=== PATIENT | male | born 1985 | race Caucasian/White ===

== ENCOUNTER 2021-12-14 15:45 | Emergency (ER) | payer BC, SELFPAY ==
[2021-12-14 15:56] VITALS: BP 141/90; PULSE 84; RESP 17; O2SAT 100
[2021-12-14 15:58] VITALS: BP 141/90; PULSE 96; RESP 18; TEMP 36.8; O2SAT 100; BMI 29.1
[2021-12-14 16:00] VITALS: BP 140/93; PULSE 96; O2SAT 100
[2021-12-14 16:30] VITALS: BP 132/83; PULSE 89; RESP 18; O2SAT 98
--- NOTE | 2021-12-14 16:38 | XR_ITS ---
PROCEDURE INFORMATION: Exam: XR Chest Exam date and time: 12/14/2021 4:45 PM Age: 36 years old Clinical indication: Other: Got delta 8 liquid from electronic cigarette in his mouth; Additional info: Got delta 8 liquid in mouth TECHNIQUE: Imaging protocol: Radiologic exam of the chest. Views: 2 views. COMPARISON: No relevant prior studies available. FINDINGS: Lungs: Upper normal lung volumes. No focal consolidation. Pulmonary vessels do not appear congested. Pleural spaces: Unremarkable. No significant pleural effusion. No pneumothorax. Heart/Mediastinum: The cardiac silhouette is normal. Bones/joints: Minimal thoracic scoliosis. Soft tissues: Small rectangular metallic foreign bodies of approximately 6 mm projected over the anterior left chest wall, likely external to the patient, correlate clinically. IMPRESSION: 1. No acute cardiopulmonary findings. No consolidation. 2. Metallic foreign bodies projected over the anterior left chest wall appear likely external to the patient, correlate clinically.
--- NOTE | 2021-12-14 16:40 | PC.NURSE ---
Attempted to call Rad to notify of CXR, but no answer.
[2021-12-14 17:00] VITALS: BP 127/87; PULSE 95; RESP 17; O2SAT 100
--- NOTE | 2021-12-14 17:31 | [facility].EDGENADL ---
Discharge Plan Disposition Patient Disposition: Home, Self-Care Condition: Good Chief Complaint: Headache Referrals Follow up/Referrals: Blanka Sargent APRN [Primary Care Provider] - See instructions Activity Restrictions/Add. Instructions Additional Instructions/Restrictions: Tylenol as needed for headache/pain. Follow-up with primary care provider for any persistent symptoms. Clinical Impressions Clinical Impression: Accidental ingestion of substance Discharge ED Provider: Jhon Preston General Adult HPI General Chief complaint: Headache Stated complaint: AO 12/13 Oil from plant coated lungs Time Seen by Provider: 12/14/21 17:15 Mode of Arrival: Ambulatory Source of Information: Patient Limitations: No Limitations Description of Symptoms (Recalled from ER Triage Doc. by RN): Pt states that he was smoking a Delta 8 cartridge last night and some of the liquid got into his mouth. Pt states that since, his stomach has been hurting, he has had a SHAH, and he has been sweating. Pt expresses concern that the liquid may have gotten into his lungs. History of Present Illness HPI narrative: Patient states that he was vaping with a delta 8 cartridge last night, he had brought it at a gas station, and the cartridge leaked liquid into his mouth. He felt like it burned the tip of his tongue, but says that he does not have any blisters. He thinks he might of swallowed or inhaled some. Since the exposure he says that he gets intermittently short of breath, productive cough, has sweats, has had a headache, has had some abdominal discomfort. When he coughs he says he can still taste the liquid. Prior to the exposure he had no symptoms whatsoever and was in normal health. He called his primary care provider who advised him to come to the emergency department. Related Data Allergies Allergy/AdvReac Type Severity Reaction Status Date / Time No Known Allergies Allergy Verified 12/14/21 16:38 PFSH PFSH Social History Smoking Status: Current every day smoker ROS Obtained: Yes Systems reviewed as appropriate & no additional complaints except as documented Constitutional Constitutional: Reports excessive sweating and Reports headache(s) ENT Ears, Nose, Mouth, and Throat: Reports as per HPI and Reports headache(s) Respiratory Respiratory: Reports shortness of breath and Reports cough Gastrointestinal Gastrointestingal: Reports abdominal pain; Denies vomiting Neurologic Neurologic: Reports headache(s) Endocrine Endocrine: Reports excessive sweating Physical Exam General General appearance: alert and in no apparent distress Head Head exam: normocephalic Eye Eye exam: Present normal appearance and EOMI ENT ENT exam: Present normal oropharynx and other (No foreign matter in the pharynx. No ram seen.) Neck Neck exam: Present normal inspection and trachea midline Chest Chest inspection: Present normal inspection and symmetric chest wall rise Respiratory Respiratory exam: Present normal lung sounds bilaterally; Absent respiratory distress, wheezes or stridor Cardiovascular Cardiovascular exam: Present regular rate, normal rhythm and normal heart sounds Abdominal Exam Abdominal exam: Present soft; Absent distention or tenderness Extremities Exam Extremities exam: Present normal inspection Neurological Exam Neurological exam: Present alert, oriented X3 and CN II-XII intact; Absent motor sensory deficit Psychiatric Psychiatric exam: Present normal affect and normal mood Skin Skin exam: Present warm and dry; Absent cyanosis or diaphoresis Medical Decision Making Bubba Inquiry Pt receiving controlled substance: No Vital Signs: 12/14/21 15:58 12/14/21 15:56 12/14/21 16:00 Temperature 98.3 F Temperature Source Oral Pulse Rate 84 96 H Pulse Rate [Right Radial] 96 H Respiratory Rate 18 17 Blood Pressure 141/90 H 140/93 H Blood Pressure [Right Arm] 141/90 H Blood Pressure Mean 99 102 Blood Pressure Mean [
[2021-12-14 18:09] VITALS: BP 117/96; PULSE 84; RESP 18; TEMP 36.8; O2SAT 100
== END 2021-12-14 18:10 | disposition home or self-care (01) ==
PROVIDERS: Emergency Provider Emergency Medicine; PCP Nurse Practitioner
DX: T65.291A Toxic effect of other tobacco and nicotine, accidental (unintentional), initial encounter (principal)
CPT/HCPCS: 71046; 99283

== ENCOUNTER → 2021-12-29 15:22 | Outpatient (CLI) | payer BC, SELFPAY ==
[2021-12-29 19:19] LABS: Basophils # 0.1 K/mm3 (0-0.2); Basophils % 1.3 % (0.1-2.0); Eosinophils # 0.1 K/mm3 (0.0-0.4); Eosinophils % 1.7 % (0.1-12.0); Hematocrit 44.1 % (42.0-52.0); Hemoglobin 14.2 g/dL (14.1-18.0); Lymphocytes # 2.6 K/mm3 (0.7-4.5); Lymphocytes % 36.1 % (10-50); Mean Corpuscular HGB Conc 32.3 g/dL (31.8-35.4); Mean Corpuscular Hemoglobin 29.3 pg (27.0-31.2); Mean Corpuscular Volume 90.8 fl (80-94); Mean Platelet Volume 9.1 fl (7.4-10.4); Monocytes # 0.4 K/mm3 (0.1-1.0); Monocytes % 5.1 % (1.7-9.3); Neutrophils % 55.9 % (37.0-80.0); Platelet Count 347 K/mm3 (142-424); Red Blood Count 4.85 M/mm3 (4.60-6.20); Red Cell Distribution Width 13.9 % (11.5-17.5); White Blood Count 7.1 K/mm3 (4.8-10.8)
[2021-12-29 19:29] LABS: Alanine Aminotransferase 26 U/L (12-78); Albumin Level 5.1 g/dl (3.5-5.0); Alkaline Phosphatase 97 U/L (38-126); Anion Gap 18.3 mEq/L (5-15); Aspartate Amino Transferase 30 U/L (17-59); Bilirubin,Total 0.7 mg/dl (0.2-1.3); Blood Urea Nitrogen 12 mg/dl (9-20); Calcium 10.6 mg/dl (8.4-10.2); Carbon Dioxide 26 mmol/L (22.0-30.0); Chloride 102 mmol/L (98-107); Estimated Glomerular Filt Rate 86 ml/min (>60); GFR (African American) 103 ML/MIN (>60); Globulin 2.6 g/dL (1.3-3.2); Glucose 81 mg/dl (74-100); Potassium 4.3 mmoL/L (3.5-5.1); Sodium 142 mmol/L (136-145); Total Protein,Serum 7.7 g/dl (6.3-8.2)
[2021-12-29 20:00] LABS: Thyroid Stimulating Hormone 0.81 uIU/mL (0.465-4.68)
[2021-12-29 20:02] LABS: Hemoglobin A1C 5.3 % (4.0-6.0)
[2021-12-29 20:19] LABS: Vitamin B12 330 pg/mL (239-931)
== END ==
PROVIDERS: PCP Nurse Practitioner; Visit Provider Nurse Practitioner
DX: R00.2 Palpitations (principal); F32.A Depression, unspecified; F41.9 Anxiety disorder, unspecified
CPT/HCPCS: 80053; 82306; 82607; 83036; 84443; 85025